=== PATIENT | female | born 2000 | race Caucasian/White ===

== ENCOUNTER 2021-06-02 09:43 | Outpatient (CLI) | payer BC | END 2021-06-02 09:44 | disposition home or self-care (01) | LOC: BICULT 09:43 | PROVIDERS: ATTEND Family Medicine | DX: R94.6 Abnormal results of thyroid function studies (principal) | CPT/HCPCS: 76536 ==

== ENCOUNTER 2021-10-30 07:42 | Outpatient (CLI) | payer BC | END 2021-10-30 07:43 | disposition home or self-care (01) | LOC: NM 07:42 | PROVIDERS: ATTEND Family Medicine | DX: E05.90 Thyrotoxicosis, unspecified without thyrotoxic crisis or storm (principal) | CPT/HCPCS: 78014; A9516 ==

== ENCOUNTER 2023-04-16 17:30 | Outpatient (CLI) | payer BC | END 2023-04-16 17:31 | disposition home or self-care (01) | LOC: SLEEPLAB 17:30 | PROVIDERS: ATTEND Family Medicine | DX: G47.33 Obstructive sleep apnea (adult) (pediatric) (principal); E66.9 Obesity, unspecified; F41.9 Anxiety disorder, unspecified; R53.83 Other fatigue | CPT/HCPCS: 95800 ==